=== PATIENT | male | born 1995 | race Caucasian/White ===

== ENCOUNTER 2022-07-31 19:18 | Emergency (ER) | payer OTHER, SELFPAY ==
[2022-07-31 19:19] VITALS: BP 163/89; PULSE 87; RESP 16; TEMP 36.6; O2SAT 97; BMI 30.3
--- NOTE | 2022-07-31 21:12 | ED.VIS.BACK ---
HPI History of Present Illness Chief Complaint: Back Narrative Narrative: 27-year-old male presenting with right-sided back pain. Stated radiates in the right gluteal region. This is an acute on chronic issue. Patient states that he has been struggling with it for over a week. Patient states that he injured this initially in the . He has had imaging of it and it showed degenerative disc disease on x-ray. Patient has seen a chiropractor recently. He was supposed to be put into physical therapy to the chiropractor however there was a mixup and they apparently were not able to set him up right away. He is awaiting a phone call from them. He does not have a primary care physician. He has tried to establish with several this month but has not. Denies loss of bladder or bowel control. Denies saddle anesthesia paresthesia. Denies any trauma. 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 And even though it was hurting him he continued to lift heavy through this. He believes this is why he is in more pain now. PFSH PFSH Home Medications cyclobenzaprine 10 mg tablet 10 mg PO TID PRN Muscle Spasm ##20 07/10/14 [Rx Last Taken Unknown] naproxen 500 mg tablet 500 mg PO BID #20 tabs 07/10/14 [Rx Last Taken Unknown] prednisone 10 mg tablet 60 mg PO DAILY 4 days #24 tabs 07/31/22 [Rx Last Taken Unknown] tizanidine 4 mg capsule 4 mg PO TID PRN muscle spasticity #14 caps 07/31/22 [Rx Last Taken Unknown] Allergy/AdvReac Type Severity Reaction Status Date / Time No Known Allergies Allergy Verified 07/31/22 19:20 Social History Smoking Status: Never smoker ROS ROS ED Review of Systems ROS Unobtainable: Denies due to encephalopathy Constitutional Constitutional ED: Denies chills or fever(s) Eyes Eyes: Denies change in vision or diplopia ENT ENT ED: Denies rhinorrhea or sore throat Cardiovascular Cardiovascular: Denies chest pain or palpitations Respiratory/Chest Respiratory/Chest: Denies dyspnea or dyspnea on exertion Gastrointestinal Gastrointestinal: Denies abdominal pain, nausea or vomiting Genitourinary Genitourinary ED: Denies dysuria or hematuria Musculoskeletal Musculoskeletal: Denies arthralgias Integumentary Denies abscess Neurologic Neurologic: Denies headache(s) or paresthesias Psychiatric Psychiatric: Denies anxiety or depression EXAM Physical Exam Const Vital Signs: 07/31/22 19:19 Temperature 97.8 F Temperature Source Temporal Pulse Rate 87 Respiratory Rate 16 Blood Pressure 163/89 H Blood Pressure Mean 113 Pulse Ox 97 Oxygen Delivery Method Room Air Positive well nourished General Appearance ED: NAD HEENT Reports moist mucous membranes Eyes PERRL and EOMs intact bilaterally Neck no lymphadenopathy Resp normal respiratory effort and clear to auscultation bilaterally Cardio regular rate and regular rhythm Back/Spine Lumbar Spine / Lower Back: straight leg raise positive right at 40 degrees Neuro oriented x3 Sensorium / Orientation: lethargic Psych mental status grossly normal Skin no rashes or lesions noted and no wounds MDM MDM MDM Narrative Medical decision making narrative: Patient presents with back pain. Based on his exam and his history is more of a sciatic pain. He states he was diagnosed with sciatica. He recently was on a Medrol Dosepak. He states that muscle relaxers really have not helped in the past. He does not want narcotics. I do not believe he needs any imaging. No red flag signs or symptoms. I did discuss with him possibly put him on higher dose of prednisone 60 mg for a few days to see if this would help and I think it would likely give him some relief. I also discussed at length with him stretching and icing. I discussed with him that he should follow-up with the chiropractor if given to have him go to physical therapy. This would probably be very helpful. He should continue to try to establish with a primary care provider as well. Return precautions were discussed. After discussion he is amenable to taking some muscle relaxers at home. Patient discharged home in stable condition. Impression: 1. Sciatica Lab Data Attestation: I reviewed the patient's lab results. Discharge Plan Triage Chief Complaint: Back ED Provider: Abhi Gordillo Dx/Rx/DC Orders Instructions: ED Sciatica Prescriptions: New prednisone 10 mg tablet 60 mg PO DAILY 4 Days Qty: 24 0RF tizanidine 4 mg capsule 4 mg PO TID PRN (Reason: muscle spasticity) Qty: 14 0RF No Action cyclobenzaprine 10 MG tablet 10 mg PO TID PRN (Reason: Muscle Spasm) Qty: 20 0RF naproxen 500 MG tablet 500 mg PO BID Qty: 20 0RF Primary Care Provider: NOT,DEFINED Referrals: NOT,DEFINED [Primary Care Provider] - Disposition Disposition: Home, Self Care
[2022-07-31] MEDS: predniSONE 20 MG Tablet 60 MG PO (22:06)
[2022-07-31] MEDS: Orphenadrine 100 MG Tablet PO (22:06)
== END 2022-07-31 23:24 | disposition home or self-care (01) ==
LOC: ED 21:21
PROVIDERS: Emergency Provider Student in an Organized Health Care Education/Training Program; Visit Provider Student in an Organized Health Care Education/Training Program
DX: M54.30 Sciatica, unspecified side (principal); G89.29 Other chronic pain
CPT/HCPCS: 99282

== ENCOUNTER 2022-08-30 16:30 | Outpatient (RCR) | payer OTHER, SELFPAY ==
--- NOTE | 2022-08-08 17:24 | HP.PTEVAL ---
Patient's Visit Information RACHANA ZULETA is a 27 year old M referred to Physical Therapy by Dr. Freddy Haddad DC with a diagnosis of Lumbar Radiculopathy. Date of Evaluation: 08/08/22 Physical Therapist: Margoth Zamora DPT - Visit Plan Frequency: 2-3x /Week Duration: 4 Weeks Plan: Aquatic- focus on pain mgmt and dec radicular s/s - Subjective Patient reports that he has a bulged disc in his back for years- but this flare up has been about a month- he has very physical job but doesn't have a specific injury. He just feels is accelerated to a certain point. The pain is there all the time. Eases: laying down (road kill position) and sitting. He is trying to do prone ex- he has been chiro and that is not helping anymore. They were doing ESU and adjustments- last time he was there was 2 weeks ago. Agg: standing, walking, lifting. Worst: 8/10. Currently a 6/10. Describes the pain as sharp/shooting and searing. Does N/T that radiates to the pinky toe. Pain starts in his back and radiates down the back and it stops at the knee. Has not had any x-rays or MRI at this point. Last dose of prednisone was 07/31/22- muscle relaxers did not help. He has never had PT on this. He use to be able to stay active now everything hurts. 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 Sleep: not disturbed- hard to get out of bed in the morning. He feels that he can't stand straight up/down. No loss or change in bowel or bladder. Currently he has pain running down his leg to the knee. PMHx/Meds: no changes since ED 07/31/22. Just got out of the 3 years ago and doesn't really go to the MD. - Objective Posture: very guarded- does not have erect posture- he leans forwards into slight flexion. Gait: antalgic- decreased stance on the right LE with poor heel/toe- no AD poor posture. HR/TR able but does report right HS pain with TR. SLS: 15 sec but does report more instability on the right LE. ROM: Lumbar: hands to mid thigh with pain, Extn: does not reach neutral with pain, SB and Rotation: WFL no pain, Hip: WFL, Knee: WFL in supine but unable to have full extension in sitting Ankle: WFL. Sensation: WNL to gross touch bilateral. Reflex: WFL bilateral patella. Strength: LE: 5/5, Core: poor. Transfers: slow and controlled with pain- unable to be in any position too long without pain. Flex: HS: severe, Gastroc: severe. Palpation: severe pain with gentle PA along L4-L5 - Special Tests L/S Slump test left side: Positive L/S Slump test right side: Positive L/S Left Straight Leg Raise: Positive L/S Right Straight Leg Raise: Positive L/S Left Femoral Nerve Tension: Positive L/S Right Femoral Nerve Tension: Positive - Balance/Special Test Scores Oswestry Low Back Score: 27 - Goals Goal 1:: Patient will be I with HEP and progression Goal Time Frame: 4-6 Weeks Goal 2:: Patient will maintain proper posture t/o tx session Goal Time Frame: 4-6 Weeks Goal 3:: Patient will report no radicular s/s for 1 week Goal Time Frame: 4-6 Weeks Goal 4:: Patient will report 80% improvement Goal Time Frame: 4-6 Weeks - Rehabilitation Potential Physical Therapy Diagnosis: Patient presents with hypomobility- he has decreased core strength/stabilization, ROM, flexibility and muscular endurance leading to poor posture and increased radicular s/s Rehabilitation Potential: Fair - Anticipated Interventions Patient/Client Instruction: Educate patient on: Benefits of Fitness Program Therapeutic Exercise to Include: Strength training, Endurance training, Balance training, Coordination, Agility training, Body mechanics, Postural training, Flexibilty training, Gait and locomotor training, Neuromotor development, In an aquatic setting, Passive ROM, Active ROM, Dynamic Lumbar Stabilization, Kiko Exercises For the Purpose of:: To improve muscle performance and motor function Thank you for the opportunity to evaluate your patient. For Medicare and Medicare HMO plans, please review the plan of care and approve it. It will need to be FAXED BACK to us at [phone] for Medicare purposes. For Medicare only, by signing this I certify the plan of care. Please let me know if there are questions or concerns regarding this plan of care. Physician Signature: Date:
--- NOTE | 2022-08-30 16:50 | HP.PTDCSUM_ITS ---
It has been my pleasure to treat RACHANA ZULETA referred by Dr. Freddy Haddad DC, with the diagnosis of Lumbar Radiculopathy for a total of 8 visit(s). Discharge Date: Please see the following information for a summary of their discharge status. Subjective: Patient reports that he has not really seen any change. The tingling is intermittent- the pain is a little better today. Worst: 8/10- sometimes in the morning is really bad- wakes him up really early and he can't go back to sleep. right Leg Pain Intensity (Out of 10): 6 Right hip Pain Intensity (Out of 10): 6 LBP Pain Intensity (Out of 10): 6 % Improvement: 0 Objective/Function: Posture: very guarded- does not have erect posture- he leans forwards into slight flexion. Gait: antalgic- decreased stance on the right LE with poor heel/toe- no AD poor posture. HR/TR able but does report right HS pain with TR. SLS: 15 sec but does report more instability on the right LE. ROM: Lumbar: hands to mid thigh with pain, Extn: does not reach neutral with pain, SB and Rotation: WFL no pain, Hip: WFL, Knee: WFL in supine but unable to have full extension in sitting Ankle: WFL. Sensation: WNL to gross touch bilateral. Reflex: WFL bilateral patella. Strength: LE: 5/5, Core: poor. Transfers: slow and controlled with pain- unable to be in any position too long without pain. Flex: HS: severe, Gastroc: severe. Palpation: severe pain with g entle PA along L4-L5. - Special Tests. L/S Slump test left side: Positive. L/S Slump test right side: Positive. L/S Left Straight Leg Raise: Positive. L/S Right Straight Leg Raise: Positive. L/S Left Femoral Nerve Tension: Positive. L/S Right Femoral Nerve Tension: Positive Goal 1:: Patient will be I with HEP and progression Goal Progress: Goal Met Goal 2:: Patient will maintain proper posture t/o tx session Goal Progress: Not Progressing Goal 3:: Patient will report no radicular s/s for 1 week Goal Progress: Not Progressing Goal 4:: Patient will report 80% improvement Goal Progress: Not Progressing Plan: 08/30/22: No change in s/s with PT- return to MD for further evaluation- d/c at this time. Follow up with supervising PT next session. Continue aquatic s with focus on pain management and decrease in radicular symptoms. If there are questions or concerns regarding this patient's physical therapy, please feel free to call me at [phone]. Thank you for the referral of this patient. Sincerely, Margoth Zamora, RYANT Balance/Gait/Functional tests - Balance/Special Test Scores Oswestry Low Back Score: 25
== END 2022-08-30 19:00 | disposition home or self-care (01) ==
LOC: PT 16:30
PROVIDERS: Referring Provider Chiropractor; Visit Provider Chiropractor
DX: M54.16 Radiculopathy, lumbar region (principal)
CPT/HCPCS: 97113; 97162; 97164